=== PATIENT | male | born 1950 | race Caucasian/White ===

== ENCOUNTER → 2016-11-13 | Outpatient (CLI) | payer MEDICARE, OTHER ==
[~2016-11-13] MED LIST: AML5T PO; CPR500T PO; FNST5T PO; OMEP20CA6 PO; TAMS-8 PO
--- NOTE | 2016-11-13 12:36 | Diagnostic Imaging Report ---
INDICATION: Followup bilateral hydronephrosis. COMPARISON: 09/27/2016. DISCUSSION: Sonographic evaluation of the bilateral kidneys and urinary bladder was again performed. The kidneys appear normal in echotexture and size. No suspicious renal mass is identified. The right kidney measures 11.9 cm. The left kidney measures 11.2 cm. The urinary bladder is completely decompressed by a Hawkins catheter. Simple appearing right renal cyst measuring 4.5 cm appears stable. Very mild right hydronephrosis is decreased from prior exam. Moderate left hydronephrosis is also decreased from prior exam. IMPRESSION: 1. Very mild right and moderate left hydronephrosis, decreased from prior. Dictated by: Dictated on workstation # [id number]
== END ==
LOC: RAD 09:54
PROVIDERS: ATTEND Urology
DX: N13.30 Unspecified hydronephrosis (principal)
CPT/HCPCS: 76770

== ENCOUNTER 2016-11-15 09:29 | Emergency (ER) | payer MEDICARE, OTHER ==
[~2016-11-15] VITALS: Ht 172.7 cm; Wt 58.0 kg
[~2016-11-15 09:29] MED LIST changes: -CPR500T PO; -FNST5T PO
--- OUTSIDE RECORDS SUMMARY | 2016-11-15 09:34 | XMS REPORT | Continuity of Care Document ---
Author Author [facility] Address Unknown Phone Unavailable Care Team Providers Care Track And [employer] Coach Name Role Phone PHYLLIS MELENDEZ MD PCP [phone] Insurance Providers Payer Name Policy Number Subscriber Name Relationship Medicare A And B [id number] Carissa Hathaway 18 Self / Same As Patient Other1 [id number] Carissa Hathaway 18 Self / Same As Patient Advance Directives Directive Response Recorded Date/Time Advanced Directives Yes 03/28/16 9:03am Type Living Will 03/28/16 9:03am Problems Active Problems Medical Problem Onset Date Status Colonoscopy Unknown Acute Dysphagia Unknown Acute Medications Current Home Medications Medication Dose Units Route Directions Days/Qty Instructions Start Date Amlodipine Besylate (Norvasc) 5 Mg 5 Mg ORAL Daily 03/28/16 Tamsulosin Hcl 0.4 Mg 0.4 Mg ORAL Daily 03/28/16 Omeprazole 20 Mg 20 Mg ORAL Daily 03/28/16 Social History Social History Problem Response Recorded Date/Time Onset Date Status Occupation or Former Occupation Retired 03/28/2016 9:07am Query Response Start Date Stop Date Smoking Status Never smoker Hospital Discharge Instructions No hospital discharge instructions. Plan of Care Discharge Date 03/28/16 12:04pm Prescriptions See Medication Section Functional Status No functional status results. Allergies, Adverse Reactions, Alerts Allergen Type Severity Reaction Status Last Updated Sulfa (Sulfonamide Antibiotics) Allergy Unknown Active 03/27/16 Immunizations No immunization records. Vital Signs Acute Vital Signs Vital Response Date/Time Temperature (Fahrenheit) 97.2 03/28/2016 11:42am Pulse 67 bpm 03/28/2016 11:54am Respirations 20 03/28/2016 11:54am Height 5 ft 8 in Weight 122 lb Body Mass Index 18.0 kg/m^2 Results Pending Laboratory Results Test Name Collection Date/Time Procedures Procedure Status Date Provider(s) CONTRST X-RAY UPPR GI TRACT Completed 03/05/16 METABOLIC PANEL TOTAL CA Completed 03/14/16 ASSAY OF MAGNESIUM Completed 03/14/16 Encounters Encounter Location Arrival/Admit Date Discharge/Depart Date Attending Provider Departed [facility] 03/28/16 8:27am 03/28/16 12: 04pm SUNNY POPE MD Registered Referred [facility] 03/14/16 4:08pm PERRY QUEEN APRN Registered Clinic [facility] 03/05/16 9:19am SUNNY POPE MD Recent Diagnosis Dysphagia
[2016-11-15 10:21] LABS: BILIRUBIN,URINE Negative (Negative); COLOR,URINE Yellow; GLUCOSE, URINE (UA) Negative (Negative); LEUKOCYTE ESTERASE ,URINE 1+ (Negative); UROBILINOGEN,URINE 0.2 mg/dL (0.2-1.0)
[2016-11-15 10:52] LABS: MEAN CORPUSCULAR HEMOGLOBIN 30.7 PG (26.0-34.0); MEAN CORPUSCULAR HGB CONC 33.6 g/dL (31.0-37.0); MEAN CORPUSCULAR VOLUME 91 FL (80-100); MEAN PLATELET VOLUME 9.9 FL (6.0-9.5); PLATELET COUNT 256 10^3uL (150-450)
[2016-11-15 11:01] LABS: ALBUMIN 3.9 g/dL (3.4-5.0); ANION GAP 15.2 MEQ/L (3-15); TOTAL PROTEIN 7.1 g/dL (6.4-8.5)
[2016-11-15] MEDS ORDERED: FNST5T PO (11:08)
[2016-11-15 11:09] LABS: CLARITY,URINE Slightly Cloudy
[2016-11-15 11:12] LABS: RBC,URINE 50-100 /HPF; URINE CENTRIFUGED VOLUME 12 mL
[2016-11-15 11:18] LABS: BAND NEUTROPHILS % 5 % (0-6); EOSINOPHILS % 0 % (0-4); LYMPHOCYTES # 0.3 #; MONOCYTES # 0.3 #; MONOCYTES % 2 % (3-11); SEGMENTED NEUTROPHILS % 91 % (51-67); TOTAL CELLS COUNTED 100
[2016-11-15 11:19] LABS: RBC MORPH NORMAL (NORMAL)
[2016-11-15] MEDS ORDERED: cefTRIAXone SODIUM 1,000 MG in SODIUM CHLORIDE 50 ML IV ONE (11:20)
[2016-11-15] MEDS ORDERED: CPR500T PO (11:30)
[2016-11-15 12:06] VITALS: BP 109/71
== END 2016-11-15 12:11 | disposition home or self-care (01) ==
LOC: ED 09:30
DX: N39.0 Urinary tract infection, site not specified (principal); D72.829 Elevated white blood cell count, unspecified; Z98.890 Other specified postprocedural states
CPT/HCPCS: 36415; 80053; 81003; 81015; 83605; 85025; 87088; 96361; 96374; 99284; J0696; J7030; 99283

== ENCOUNTER → 2016-12-24 | Outpatient (CLI) | payer MEDICARE, OTHER ==
[2016-12-24 09:03] LABS: ANION GAP 14.8 MEQ/L (3-15)
== END ==
LOC: RAD 08:18
PROVIDERS: ATTEND Urology
DX: N13.722 Vesicoureteral-reflux with reflux nephropathy without hydroureter, bilateral (principal); R31.0 Gross hematuria; N28.1 Cyst of kidney, acquired
CPT/HCPCS: 36415; 76770; 80048

== ENCOUNTER → 2017-01-16 | Outpatient (CLI) | payer MEDICARE, OTHER ==
[2017-01-16 14:33] LABS: BASOPHILS % (AUTO) 0 % (0-2); EOSINOPHILS # (AUTO) 0.2 10^3uL; EOSINOPHILS % (AUTO) 3 % (0-4); LYMPHOCYTES # (AUTO) 1.6 X10^3; MEAN CORPUSCULAR HEMOGLOBIN 30.1 PG (26.0-34.0); MEAN CORPUSCULAR HGB CONC 33.1 g/dL (31.0-37.0); MEAN CORPUSCULAR VOLUME 91 FL (80-100); MONOCYTES # (AUTO) 0.6 X10^3; MONOCYTES % (AUTO) 8 % (3-11); NEUTROPHILS # (AUTO) 5.2 X10^3; NEUTROPHILS % (AUTO) 68 % (51-67); PLATELET COUNT 261 10^3uL (150-450)
== END ==
LOC: LAB 14:25
PROVIDERS: ATTEND Nurse Practitioner Family
DX: D63.8 Anemia in other chronic diseases classified elsewhere (principal)
CPT/HCPCS: 36415; 85025

== ENCOUNTER → 2017-02-21 | Outpatient (CLI) | payer MEDICARE, OTHER ==
[~2017-02-21] MED LIST changes: +CPR500T PO; +FNST5T PO
[2017-02-21 09:31] LABS: MEAN CORPUSCULAR HGB CONC 33.1 g/dL (31.0-37.0); MEAN PLATELET VOLUME 9.9 FL (6.0-9.5); WHITE BLOOD COUNT 5.25 10^3uL (4.0-11.0)
[2017-02-21 09:44] LABS: ALBUMIN 4.5 g/dL (3.4-5.0); ANION GAP 15.1 MEQ/L (3-15); PHOSPHORUS 3.8 mg/dL (2.4-4.9)
== END ==
LOC: LAB 09:15
PROVIDERS: ATTEND Internal Medicine Nephrology
DX: N18.4 Chronic kidney disease, stage 4 (severe) (principal); I10 Essential (primary) hypertension
CPT/HCPCS: 36415; 80069; 82306; 83970; 85027

== ENCOUNTER 2017-02-25 19:59 | Emergency (ER) | payer MEDICARE, OTHER ==
[~2017-02-25] VITALS: Ht 172.7 cm; Wt 60.0 kg
[2017-02-25 20:50] LABS: BASOPHILS % (AUTO) 0 % (0-2); EOSINOPHILS # (AUTO) 0.1 10^3uL; EOSINOPHILS % (AUTO) 2 % (0-4); LYMPHOCYTES # (AUTO) 1.2 X10^3; MEAN CORPUSCULAR HEMOGLOBIN 30.4 PG (26.0-34.0); MEAN CORPUSCULAR HGB CONC 33.6 g/dL (31.0-37.0); MEAN CORPUSCULAR VOLUME 90 FL (80-100); MEAN PLATELET VOLUME 9.9 FL (6.0-9.5); MONOCYTES # (AUTO) 0.5 X10^3; MONOCYTES % (AUTO) 7 % (3-11); NEUTROPHILS # (AUTO) 5.6 X10^3; NEUTROPHILS % (AUTO) 75 % (51-67); PLATELET COUNT 231 10^3uL (150-450); WHITE BLOOD COUNT 7.39 10^3uL (4.0-11.0)
[2017-02-25 20:52] LABS: BILIRUBIN,URINE Negative (Negative); CLARITY,URINE Clear; COLOR,URINE Yellow; GLUCOSE, URINE (UA) Negative (Negative); LEUKOCYTE ESTERASE ,URINE Trace (Negative); PH,URINE 7.5 (5.0 - 8.0); UROBILINOGEN,URINE 0.2 mg/dL (0.2-1.0)
[2017-02-25 20:59] LABS: ALBUMIN 4.4 g/dL (3.4-5.0); ALKALINE PHOSPHATASE 87 U/L (38-126); ANION GAP 14.8 MEQ/L (3-15); BUN/CREATININE RATIO 16 (10-20); CALCULATED IONIZED CALCIUM 3.8 mg/dL (3.8-4.6); TOTAL PROTEIN 7.6 g/dL (6.4-8.5)
[2017-02-25 21:03] LABS: RBC,URINE 0-2 /HPF; URINE CENTRIFUGED VOLUME 12 mL
[2017-02-25] MEDS ORDERED: ONDANSETRON 4 MG (ZOFRAN) ORAL DISSOLVE TAB PO ONE (21:40)
[2017-02-25] MEDS ORDERED: MECLIZINE 25 MG (ANTIVERT) TABLET PO ONE (21:40)
--- NOTE | 2017-02-25 21:46 | NUR ---
Pt had vomited, given some Zofran for nausea.
[2017-02-25] MEDS ORDERED: MECLIZINE PO ONE (22:50)
[2017-02-25 23:20] VITALS: BP 134/69
--- NOTE | 2017-02-26 08:54 | Diagnostic Imaging Report ---
PROCEDURE: CT head without contrast. TECHNIQUE: Multiple contiguous axial images were obtained through the brain without the use of intravenous contrast. INDICATION: Dizziness. FINDINGS: Ventricles appear normal. Cortical gyral pattern is normal. There is no intracranial hemorrhage. There is no mass effect. No extraaxial fluid collections. Hypodense area noted within the shawn described on the preliminary report as visualized. This is felt most likely to be artifactual. IMPRESSION: No definite changes noted. Probable artifact within the shawn. As suggested in the preliminary report if clinically indicated MRI would be a consideration. Dictated by: Dictated on workstation # [id number]
== END 2017-02-25 23:07 | disposition home or self-care (01) ==
LOC: ED 20:00
DX: H81.11 Benign paroxysmal vertigo, right ear (principal); R94.02 Abnormal brain scan; I10 Essential (primary) hypertension
CPT/HCPCS: 36415; 70450; 80053; 81003; 81015; 84443; 84484; 85025; 86140; 87088; 99283; A9270

== ENCOUNTER → 2017-03-18 | Outpatient (REF) | payer MEDICARE, OTHER ==
[2017-03-18 10:24] LABS: BASOPHILS % (AUTO) 0 % (0-2); EOSINOPHILS # (AUTO) 0.2 10^3uL; EOSINOPHILS % (AUTO) 3 % (0-4); LYMPHOCYTES # (AUTO) 1.1 X10^3; MEAN CORPUSCULAR HEMOGLOBIN 30.5 PG (26.0-34.0); MEAN CORPUSCULAR HGB CONC 33.1 g/dL (31.0-37.0); MEAN CORPUSCULAR VOLUME 92 FL (80-100); MEAN PLATELET VOLUME 10.4 FL (6.0-9.5); MONOCYTES # (AUTO) 0.5 X10^3; MONOCYTES % (AUTO) 8 % (3-11); NEUTROPHILS # (AUTO) 4.4 X10^3; NEUTROPHILS % (AUTO) 71 % (51-67); PLATELET COUNT 253 10^3uL (150-450); WHITE BLOOD COUNT 6.23 10^3uL (4.0-11.0)
== END ==
LOC: LAB 09:54
PROVIDERS: ATTEND Nurse Practitioner Family
DX: D64.9 Anemia, unspecified (principal)
CPT/HCPCS: 85025